=== PATIENT | female | born 1990 | race African-American/Black ===

== ENCOUNTER 2018-07-01 14:21 | Emergency (ER) | payer BC, SELFPAY ==
[2018-07-01 14:48] LABS: Bilirubin Negative (Negative); Blood, Urine Negative (Negative); Clarity Clear (Clear); Glucose, Urine (Dipstick) Negative (Negative); Leukocyte Trace (Negative); Nitrite Negative (Negative); Protein, Urine (Dipstick) Negative (Neg-Trace); Specific Gravity, Urine 1.015 (1.005-1.030); Urobilinogen 0.2 mg/dL (0.2-1.0); pH, Urine 6.5 (5.0-9.0)
[2018-07-01 14:49] LABS: Pregnancy Test - Urine (BHCG) Negative (Negative); Pregu Control Background? CLEAR/WHITE (CLR/WHITE); Pregu Control Bar Appear? YES (CONTROL BAR); Specific Gravity 1.015 (1.002-1.036)
[2018-07-01 14:52] LABS: Bacteria/HPF Rare-Few HPF (None Seen); Hyaline Casts/LPF 0-3 HYALINE CAST LPF (0-3 Hyaline); Other Casts/LPF 0-3 FINELY GRAN LPF (0-3 Hyaline); RBC/HPF 0-3 HPF (0-3); Renal Epithelial 0-3 HPF (0-3); Squamous Epithelial 0-3 HPF (0-3)
== END 2018-07-01 15:07 | disposition home or self-care (01) ==
LOC: SCSER 14:21
DX: N89.8 Other specified noninflammatory disorders of vagina (principal)
CPT/HCPCS: 81003; 81015; 81025; 87086; 99283

== ENCOUNTER 2019-03-24 13:19 | Emergency (ER) | payer OTHER ==
[2019-03-24 13:39] LABS: Bilirubin Negative (Negative); Blood, Urine Negative (Negative); Clarity Cloudy (Clear); Glucose, Urine (Dipstick) Negative (Negative); Leukocyte Large (Negative); Nitrite Negative (Negative); Pregnancy Test - Urine (BHCG) POSITIVE (Negative); Protein, Urine (Dipstick) Negative (Neg-Trace)
[2019-03-24 13:40] LABS: Pregu Control Background? CLEAR/WHITE (CLR/WHITE); Pregu Control Bar Appear? YES (CONTROL BAR)
[2019-03-24 13:41] LABS: RBC/HPF 0-3 HPF (0-3)
[2019-03-24 13:42] LABS: Bacteria/HPF 2+ HPF (None Seen); Mucous/LPF 1+ LPF (<2+); Yeast-Budding 1+ HPF (None Seen); Yeast-Hyphae 1+ HPF (None Seen)
[2019-03-24 13:53] LABS: #Basophils 0.1 thou/uL (0.0-0.2); #Eosinphils 0.1 thou/uL (0.0-0.7); #Lymphocytes 2.4 thou/uL (1.20-3.40); #Monocytes 0.8 thou/uL (0.11-0.59); #Neutrophils 6.5 thou/uL (1.40-6.50); %Basophils 0.6 % (0.0-1.0); %Eosinophils 0.8 % (0.0-10.0); %Monocytes 7.9 % (0.0-10.0); %Neutrophils 66.6 % (42.0-75.0); Hemoglobin 14.6 g/dL (12.0-16.0); Mean Corpuscular HGB CONC 34.5 g/dL (32.0-36.0); Mean Corpuscular Hemoglobin 31.3 pg (27.0-31.0); Mean Corpuscular Volume 90.6 fL (78.0-98.0); Platelet Count 337 thou/uL (130-400); Red Blood Cell (RBC) Count 4.66 mill/uL (4.20-5.40); White Blood Cell (WBC) Count 9.8 thou/uL (4.8-10.8)
[2019-03-24 14:12] LABS: ALT (SGPT) 7 U/L (8-55); AST (SGOT) 13 U/L (5-34); Albumin 3.9 g/dL (3.5-5.0); Alkaline Phosphatase 69 U/L (40-110); Anion Gap 13 mmol/L (10-20); BUN (Urea Nitrogen) 5 mg/dL (7.0-18.7); Bilirubin, Total 0.5 mg/dL (0.2-1.2); CK (CPK) 44 U/L (29-168); Calc. Creatinine Clearance 0 mL/min (70-130); Calcium 8.8 mg/dL (7.8-10.44); Carbon Dioxide 22 mmol/L (22-29); Chloride 107 mmol/L (98-107); Estimated GFR-MDRD Greater than 90; Globulin 3.2 g/dL (2.4-3.5); Glucose 91 mg/dL (70-105); Lipase 30 U/L (8-78); Potassium 3.4 mmol/L (3.5-5.1); Protein, Total 7.1 g/dL (6.0-8.3); Sodium 139 mmol/L (136-145)
--- NOTE | 2019-03-24 15:03 | ULT ---
Pelvic sonogram transabdominal and transvaginal imaging with duplex evaluation HISTORY: Pelvic pain. Positive test. FINDINGS: Urinary bladder is decompressed. Uterus has a heterogeneous echotexture and measures up to 8.9 cm. Endometrium 1.4 cm thick. Tiny cystic structure within the endometrial cavity is present without yolk sac or pole visible. When measured as a gestational sac, it is 5 weeks 2 days size . No free fluid within the pelvis. Small nabothian cysts. Right ovary measures up to 2.5 cm with follicles and good color and spectral Doppler flow. Left ovary measures up to 5.5 cm. Dominant cyst is 3.9 cm. Good color and spectral Doppler flow. Physiologic amount of free fluid within the cul-de-sac. IMPRESSION: Tiny cystic structure within the endometrial cavity without yolk sac or pole visibl e. Possible very early gestational sac. 5 weeks 2 days gestational size. Please consider continued close clinical and sonographic follow-up. Left ovarian cyst 3.9 cm.
[2019-03-28 00:51] LABS: Chlamydia by PCR Not Detected (NotDetected); GC by PCR Not Detected (NotDetected)
== END 2019-03-24 15:14 | disposition home or self-care (01) ==
LOC: SCSER 13:19
DX: O98.82 Other maternal infectious and parasitic diseases complicating childbirth (principal); B37.3 Candidiasis of vulva and vagina; O23.41 Unspecified infection of urinary tract in pregnancy, first trimester; Z3A.01 Less than 8 weeks gestation of pregnancy
CPT/HCPCS: 36415; 76856; 80053; 81003; 81015; 81025; 82550; 83690; 84702; 85025; 87086; 87480; 87491; 87510; 87591; 87660

== ENCOUNTER 2019-11-14 05:20 | Inpatient (IN) | payer BC, OTHER ==
[2019-11-14] MEDS ORDERED: Ondansetron PF 4 MG/2 ML Vial IVP PRN ×3 (05:56→09:12)
[2019-11-14] MEDS ORDERED: Lactated Ringer's 1,000 ML IV SCH (05:56)
[2019-11-14] MEDS ORDERED: hydrALAZINE 20 MG/ML VIAL SLOW IVP PRN ×2 (05:56→09:12)
[2019-11-14] MEDS ORDERED: Promethazine HCl 25 MG/ML VIAL IM PRN ×2 (05:56→08:28)
[2019-11-14] MEDS ORDERED: Docusate 100 MG CAP PO PRN (05:56)
[2019-11-14 06:04] VITALS: BMI 37.0
[2019-11-14 06:05] LABS: Hemoglobin 13.4 g/dL (12.0-16.0); Mean Corpuscular HGB CONC 33.8 g/dL (32.0-36.0); Mean Corpuscular Hemoglobin 31.6 pg (27.0-31.0); Mean Corpuscular Volume 93.4 fL (78.0-98.0); Mean Platelet Volume 8.2 fL (7.4-10.4); Platelet Count 222 thou/uL (130-400); RBC Distribution Width 13.5 % (11.5-14.5); Red Blood Cell (RBC) Count 4.24 mill/uL (4.20-5.40); White Blood Cell (WBC) Count 11.2 thou/uL (4.8-10.8)
[2019-11-14] MEDS ORDERED: Bicitra 30 ML UDCUP PO SCH (06:15)
[2019-11-14] MEDS ORDERED: CEFAZOLIN 2 GM in Premix Bag 1 BAG IVPB SCH (06:15)
[2019-11-14] MEDS ORDERED: Famotidine/PF 20 mg/2ml Vial ONE (06:29)
[2019-11-14 06:58] LABS: Syphilis Antibody Nonreactive (Nonreactive); Syphilis Antibody Index 0.06 S/CO (<1.00 Non-Reactive)
[2019-11-14 06:59] LABS: HIV (1/2) Antibody/Antigen Non-Reactive (NonReactive); HIV 1/2 INDEX 0.15 S/CO (<1.00); Hep B Surf Ag Non-Reactive S/CO (NonReactive)
[2019-11-14] MEDS ORDERED: Misoprostol 200 MCG TAB ONE (07:32)
[2019-11-14] MEDS ORDERED: Carboprost 250 MCG/ML AMP ONE (07:33)
[2019-11-14] MEDS ORDERED: Methylergonovine 0.2 MG/ML VIAL ONE (07:33)
[2019-11-14] MEDS ORDERED: Oxytocin 10 UNITS/ML VIAL ONE ×3 (07:43→08:35)
[2019-11-14] MEDS ORDERED: MORPHINE 5 MG/10 ML PF VIAL ONE (07:43)
[2019-11-14] MEDS ORDERED: Ondansetron HCl/PF 4 MG/2 ML Vial IVP PRN (08:28)
[2019-11-14] MEDS ORDERED: Promethazine HCl 25 MG SUPP PR PRN (08:28)
[2019-11-14] MEDS ORDERED: L&D-Morphine 4 MG/ML VIAL SLOW IVP PRN (08:28)
[2019-11-14] MEDS ORDERED: diphenhydrAMINE 50 MG/ML VIAL IVP PRN (08:28)
[2019-11-14] MEDS ORDERED: Naloxone HCl 0.4 mg/ml Vial IV PRN (08:28)
[2019-11-14] MEDS ORDERED: Meperidine HCl/PF 25 MG/ML VIAL SLOW IVP PRN (08:28)
[2019-11-14] MEDS ORDERED: Naloxone HCl 0.4 mg/ml Vial IVP PRN ×2 (08:28)
[2019-11-14] MEDS ORDERED: HYDROmorphone 2 MG/ML VIAL SLOW IVP PRN (08:28)
[2019-11-14] MEDS ORDERED: Communication Order-Pharmacy FS SCH (08:30)
[2019-11-14] MEDS ORDERED: Meperidine HCl/PF 25 MG/ML VIAL IM PRN (09:12)
[2019-11-14] MEDS ORDERED: Acetaminophen 325 MG TAB PO PRN (09:12)
[2019-11-14] MEDS ORDERED: Lanolin Ointment 7 GM TUBE TOP PRN (09:12)
[2019-11-14] MEDS ORDERED: Misoprostol 200 MCG TAB PR PRN (09:12)
[2019-11-14] MEDS ORDERED: Bisacodyl 10 MG SUPP PR PRN (09:12)
[2019-11-14] MEDS ORDERED: NS / Oxytocin 40 units/1000ml 1,000 ML IV SCH (09:15)
[2019-11-14] MEDS: Lactated Ringer's 1,000 ML IV SCH ×2 (10:29→17:43)
[2019-11-14] MEDS ORDERED: Morphine 4 MG/ML VIAL ONE (11:10)
[2019-11-14] MEDS ORDERED: Morphine 4 MG/ML VIAL IV SCH (11:15)
[2019-11-14] MEDS ORDERED: PHENYLEPHRINE-NS 100 MCG/ML 10 ML SYRINGE ONE (11:51)
[2019-11-14] MEDS ORDERED: diphenhydrAMINE 50 MG/ML VIAL ONE (11:51)
[2019-11-14] MEDS ORDERED: Ketorolac Tromethamine 30 MG/ML VIAL ONE (11:51)
[2019-11-14] MEDS ORDERED: EPHEDRINE 25 MG/5 ML SYRINGE ONE (11:51)
[2019-11-14] MEDS ORDERED: Metoclopramide HCl 10 MG/2 ML VIAL ONE (11:51)
[2019-11-14] MEDS ORDERED: Dexamethasone 20 MG/5 ML VIAL ONE (11:51)
[2019-11-14] MEDS ORDERED: Ondansetron PF 4 MG/2 ML Vial ONE (11:51)
[2019-11-14] MEDS: Ibuprofen 800 MG TAB PO SCH (13:32)
[2019-11-14] MEDS: Ketorolac Tromethamine 30 MG/ML VIAL IVP PRN ×2 (14:42→21:16)
[2019-11-14] MEDS: diphenhydrAMINE 25 MG CAP PO PRN ×2 (14:44→21:15)
[2019-11-14] MEDS: Docusate Calcium (SURFAK) 240 MG CAP PO SCH (21:15)
[2019-11-14] MEDS: Simethicone Chewable 80 MG TAB PO PRN (21:15)
[2019-11-14] MEDS ORDERED: Zolpidem Tartrate 5 MG TAB PO PRN (22:30)
[2019-11-15] MEDS: Ferrous Sulfate 325 MG TAB PO SCH ×3 (00:35→22:22)
[2019-11-15] MEDS: Ibuprofen 800 MG TAB PO SCH ×4 (00:35→20:55)
[2019-11-15] MEDS: Lactated Ringer's 1,000 ML IV SCH ×4 (00:36→23:10)
[2019-11-15] MEDS: Simethicone Chewable 80 MG TAB PO PRN ×3 (05:24→20:55)
[2019-11-15] MEDS: HYDROcodone/Acetaminophen 5/325 mg Tablet PO PRN ×3 (05:30→20:55)
[2019-11-15 06:50] LABS: Hemoglobin 12.3 g/dL (12.0-16.0); Mean Corpuscular HGB CONC 34.6 g/dL (32.0-36.0); Mean Corpuscular Hemoglobin 32.8 pg (27.0-31.0); Mean Corpuscular Volume 94.8 fL (78.0-98.0); Mean Platelet Volume 8.4 fL (7.4-10.4); Platelet Count 193 thou/uL (130-400); RBC Distribution Width 13.4 % (11.5-14.5); Red Blood Cell (RBC) Count 3.75 mill/uL (4.20-5.40); White Blood Cell (WBC) Count 20.8 thou/uL (4.8-10.8)
[2019-11-15] MEDS: Docusate Calcium (SURFAK) 240 MG CAP PO SCH ×2 (08:46→20:54)
[2019-11-15] MEDS: Prenatal Vitamin 1 TAB PO SCH (08:46)
[2019-11-15] MEDS ORDERED: Adacel (T-DAP) 0.5 ML SYRINGE IM ONE (09:12)
[2019-11-15] MEDS: diphenhydrAMINE 25 MG CAP PO PRN ×2 (09:29→20:55)
--- NOTE | 2019-11-15 20:42 | OP ---
DATE OF PROCEDURE: 11/14/2019 PRIMARY SURGEON: Sushant Diaz MD RESIDENT SURGEON: Mary Garvey DO. PROCEDURE: Repeat low transverse . PREOPERATIVE DIAGNOSES: 1. Term intrauterine . 2. Previous x1. 3. Herpes simplex virus 2 with outbreak at 36 weeks. POSTOPERATIVE DIAGNOSES: 1. Term intrauterine , delivered. 2. Repeat low transverse . 3. Previous x1. 4. Herpes simplex virus 2 with outbreak at 36 weeks. INDICATIONS: This is a 29-year-old female, G2, P1-0-0-1 at 39 weeks with LILLIAN of 11/21/2019 who presented for repeat scheduled . DESCRIPTION OF PROCEDURE: After risks, benefits, and alternatives were explained to the patient, she gave informed consent. Cefazolin 2 g IV was given 30 minutes prior to operation. The patient was taken to the operating room where spinal anesthesia was initiated. She was placed in supine position with left lateral tilt. She was prepped and draped in usual sterile fashion. The previous scar was excised in an elliptical fashion and a Pfannenstiel incision was made and carried down to the level of the fascia using Bovie on cut mode. Upon reaching the fascia, the fascia was sharply nicked with a scalpel. The lateral edges of the fascia were extended laterally with Nolan scissors. The inferior and superior edges of the cut fascial edges were elevated with Nimo clamps. The underlying rectus muscles were dissected free using a scalpel. Bleeders were cauterized along the way. Two hemostats were used to identify the midline rectus muscles. Nolan scissors were then used to separate rectus muscles in midline. The peritoneum was entered bluntly and the rectus muscles and peritoneum were extended laterally using manual force. A bladder blade was placed. A bladder flap was then created using Metzenbaum scissors. A low-transverse cut was made using the scalpel at the midline lower uterine segment. Upon entering, clear fluid was seen. The infant was noted to be vertex and was easily delivered by fundal pressure. Nuchal cord x1. The cord was clamped and cut and grossly normal female infant was handed to the waiting nurse. Cord blood collected. Placenta was removed manually and noted to be intact and discarded. The uterus was externalized and curetted with a dry lap. The hysterotomy was closed in several layers utilizing a #1 chromic suture in a running locking fashion. After this, hemostasis was noted. Seprafilm was placed. The uterus was then internalized and the hysterotomy again was noted to be hemostatic. The peritoneum was closed using 3-0 Vicryl suture in a running nonlocking fashion. The rectus muscles were then brought together using #1 chromic suture and 3-0 Vicryl in figure-of- eight stitches. Bleeders were cauterized. No significant bleeding was noted prior to closure of fascia. Fascia was then closed using 0 Vicryl suture in a running nonlocking fashion. Subcutaneous bleeders were cauterized and subcutaneous tissue was irrigated with saline and suctioned free of clots. Subcutaneous tissue was closed using 2-0 plain gut in simple interrupted fashion. The skin incision was then closed using 4-0 monofilament. Dermabond was placed. Pressure dressing was applied. All counts were correct. ESTIMATED BLOOD LOSS: 735 mL. FINDINGS: Grossly normal placenta with 3-vessel cord noted and discarded. There was a moderate amount of fascial adhesions. Grossly normal female with Apgars of 8 and 9 at 1 and 5 minutes respectively. The 's weight was 2253 g. DRAINS: Lindsay to gravity, draining clear urine. Job ID: [id number] [facility]
[2019-11-16] MEDS: Ibuprofen 800 MG TAB PO SCH ×2 (05:16→15:06)
[2019-11-16] MEDS: Simethicone Chewable 80 MG TAB PO PRN (07:56)
[2019-11-16] MEDS: Prenatal Vitamin 1 TAB PO SCH (07:56)
[2019-11-16] MEDS: Docusate Calcium (SURFAK) 240 MG CAP PO SCH (07:56)
[2019-11-16] MEDS: HYDROcodone/Acetaminophen 5/325 mg Tablet PO PRN ×2 (07:57→12:25)
[2019-11-16] MEDS: Ferrous Sulfate 325 MG TAB PO SCH (08:00)
[2019-11-16 08:51] VITALS: BP 104/61; TEMP 98.9
[2019-11-16] MEDS: Lactated Ringer's 1,000 ML IV SCH (12:27)
== END 2019-11-16 15:30 | disposition home or self-care (01) | DRG 787 ==
LOC: L&D 05:20 → 3SW 12:32
PROVIDERS: ADMIT Obstetrics & Gynecology; ATTEND Obstetrics & Gynecology
PROC: 10D00Z1 Extraction of Products of Conception, Low, Open Approach (ICD-10-PCS; principal; 2019-11-14)
PROC: 3E0P05Z Introduction of Adhesion Barrier into Female Reproductive, Open Approach (ICD-10-PCS; 2019-11-14)
DX: O34.211 Maternal care for low transverse scar from previous cesarean delivery (principal); O98.52 Other viral diseases complicating childbirth; Z3A.39 39 weeks gestation of pregnancy; Z37.0 Single live birth; B00.9 Herpesviral infection, unspecified; O99.62 Diseases of the digestive system complicating childbirth; K66.0 Peritoneal adhesions (postprocedural) (postinfection)
CPT/HCPCS: 36415; 51702; 85027; 86780; 86850; 86900; 86901; 87340; 87389; J0690; J1100; J1200; J1885; J2210; J2270; J2274; J2405; J2590; J2765; J3490; Q0163; S0028